=== PATIENT | female | born 1975 | race Caucasian/White ===

== ENCOUNTER 2017-07-25 16:39 | Emergency (ER) | payer BC, OTHER ==
[~2017-07-25 16:39] MED LIST: FLONASE16 GM; TESSALON200 MG PO
[2017-07-25] MEDS ORDERED: NO MEDICATIONS (16:54)
[2017-07-25 18:03] LABS: URINE SOURCE CLEAN CATCH
[2017-07-25 18:06] LABS: URINE APPEARANCE CLEAR; URINE BILIRUBIN NEG (NEG); URINE BLOOD 3+ (NEG); URINE COLOR YELLOW; URINE GLUCOSE NEG (NORM); URINE KETONE TRACE (NEG); URINE LEUKOCYTE ESTERASE NEG (NEG); URINE NITRATE NEG (NEG); URINE PROTEIN NEG (NEG); URINE SPECIFIC GRAVITY 1.025 (1.003-1.035)
[2017-07-25 18:08] LABS: MICRO INDICATED? YES
[2017-07-25 18:15] LABS: CULTURE INDICATED? NO; URINE BACTERIA NEG (NEG); URINE WBC 0-2 /[HPF] (0-5)
== END 2017-07-25 18:36 | disposition home or self-care (01) ==
LOC: SED 16:39
PROVIDERS: Physician Assistant Medical
DX: R10.2 Pelvic and perineal pain (principal); F17.210 Nicotine dependence, cigarettes, uncomplicated; Z98.51 Tubal ligation status
CPT/HCPCS: 81003; 84703; 99284